=== PATIENT | male | born 1950 | race Caucasian/White ===

== ENCOUNTER → 2016-12-01 | Outpatient (CLI) | payer MEDICARE, BC ==
[~2016-12-01] MED LIST: CELEBREX 200MG200 MG PO; COUMADIN 5MG5 MG/TAB PO; FLECANIDE; FLOMAX 0.40.4 MG/CAP PO; LISINOPRIL10 MG PO; PERCOCET 650 MG1 TAB PO; PRILOSEC10 MG PO
== END ==
LOC: COL.LAB 10:40
DX: Z01.812 Encounter for preprocedural laboratory examination (principal); M25.852 Other specified joint disorders, left hip

== ENCOUNTER → 2016-12-09 | Outpatient (REF) ==
[2016-12-09 04:54] LABS: INR 1.2 (0.8-3.0); PROTHROMBIN TIME 13.8 SECONDS (9.7-12.8)
== END ==
LOC: ZMSC 04:40
PROVIDERS: Orthopaedic Surgery
DX: Z01.89 Encounter for other specified special examinations (principal)

== ENCOUNTER 2020-12-28 07:11 | Day surgery (SDC) | payer MEDICARE, BC ==
[~2020-12-28] VITALS: Ht 180.3 cm; Wt 100.0 kg
[~2020-12-28 07:11] MED LIST changes: -LISINOPRIL10 MG PO; +PRINIVIL10 MG PO
[2020-12-28 07:47] LABS: BASO % 0.1 % (0.0-2.0); EOS # 0.1 (0.0-0.7); EOS % 0.5 % (0-4.0); GRAN # 7.2 (1.4-6.5); GRAN % 75.5 % (42.2-75.2); HEMATOCRIT 43.8 % (42.0-52.0); HEMOGLOBIN 15.3 g/dl (13.5-18.0); LYMPH # 1.4 (1.2-3.4); LYMPH % 14.9 % (20.0-51.0); MEAN CELL VOLUME 90 fl (80.0-100.0); MEAN CORPUSCULAR HEMOGLOBIN 32 pg (27.0-31.0); MEAN CORPUSCULAR HGB CONC 35 g/dl (33.0-37.0); MEAN PLATELET VOLUME 9.7 fl (7.4-10.4); MONO # 0.8 (0.1-0.6); MONO % 8.6 % (1.7-9.3); PLATELET COUNT 212 K/mm3 (130-400); RED BLOOD COUNT 4.85 M/mm3 (4.20-5.60); REDCELL DISTRIBUTION WIDTH-CV 11.9 % (11.5-14.5)
[2020-12-28 07:49] LABS: COLLECTION METHOD CLEAN CATCH
[2020-12-28 07:57] LABS: INR 1.1 (0.8-3.0); PROTHROMBIN TIME 12.5 SECONDS (9.7-12.8)
[2020-12-28 08:00] LABS: ALANINE AMINOTRANSFERASE 21 U/L (4-49); ALBUMIN 4.3 gm/dL (3.5-5.0); ALKALINE PHOSPHATASE 49 U/L (50-136); ANION GAP 8 mmol/L (7-16); AST,SGOT 22 U/L (15-37); BILIRUBIN,TOTAL 0.8 mg/dL (0.0-1.0); BLOOD UREA NITROGEN 34 mg/dL (9-20); CALCIUM 9.8 mg/dL (8.4-10.2); CARBON DIOXIDE 27 mmol/L (22-30); CHLORIDE 104 mmol/L (98-107); CREATININE, serum 1.25 (0.66-1.25); GLUCOSE 111 mg/dL (74-106); POTASSIUM 4.2 mmol/L (3.4-5.0); SODIUM 138 mmol/L (137-145); TOTAL PROTEIN 7.6 gm/dL (6.4-8.2)
[2020-12-28 08:03] LABS: C-REACTIVE PROTEIN < 0.5 mg/dL (0.0-0.9)
[2020-12-28] MEDS ORDERED: TAMBOCOR50 MG PO (08:06)
[2020-12-28] MEDS ORDERED: SINGULAIR 110 MG/TAB PO (08:07)
[2020-12-28] MEDS ORDERED: PRAVACHOL10 MG PO (08:08)
[2020-12-28 08:10] LABS: MUCOUS Present /lpf; PH 5 (5-8); SQUAMOUS EPITHELIAL 0-2 /hpf; URINE APPEARANCE Hazy; URINE BACTERIA None Seen /hpf; URINE BILIRUBIN Negative (NEGATIVE); URINE BLOOD 1+ (NEGATIVE); URINE COLOR Yellow; URINE GLUCOSE Negative (NEGATIVE); URINE KETONE Negative (NEGATIVE); URINE LEUKOCYTE ESTERASE Negative (NEGATIVE); URINE NITRATE Negative (NEGATIVE); URINE PROTEIN(semi-quant) Negative (NEGATIVE); URINE RBC 0-2 /hpf
[2020-12-28] MEDS ORDERED: IBU600 MG PO (11:17)
--- NOTE | 2020-12-28 11:30 | NUR ---
Pt admitted to medical unit rm [id number] from ED via WC, A&O x 4, denies pain at this time. Breath sounds CTAB. Heart sounds with irregular rhythm. IVF's infusing per orders to left AC site without s/s of complications. POC for procedure later today reviewed with pt, verbalizes understanding. No further needs reported. Call light in reach.
[2020-12-28 11:31] VITALS: BP 112/81; PULSE 71; TEMP 97.2
--- NOTE | 2020-12-28 14:38 | NUR ---
Pt to endo for procedure via cart.
--- NOTE | 2020-12-28 14:40 | NUR ---
Pt's notified by this nurse of pt going for procedure.
[2020-12-28 16:30] VITALS: BP 104/72; PULSE 78
--- NOTE | 2020-12-28 16:30 | NUR ---
Pt back to room following procedure via cart, A&O x 4, denies pain. Pt assisted by standby assist to bathroom and back, denies dizziness or pain. IVF's infusing by gravity without s/s of complications. BP still a little low. Pt's at bedside. Call light in reach.
[2020-12-28 16:45] VITALS: BP 117/68; PULSE 75
[2020-12-28 17:00] VITALS: BP 115/86; PULSE 70
[2020-12-28 17:15] VITALS: BP 128/81; PULSE 55
--- NOTE | 2020-12-28 17:53 | NUR ---
VSS. Pt has drank a full glass of water without difficulty, states, "I'm ready to go home." Pt informed of the need to keep food down as well, pudding provided.
--- NOTE | 2020-12-28 18:00 | NUR ---
Pt has eaten a chocolate pudding cup without difficulty, denies nausea.
--- NOTE | 2020-12-28 18:15 | NUR ---
Discharge instructions reviewed with pt regarding follow-up appointments and medication changes. Pt verbalizes understanding, discharged home, escorted out of facility accompanied by REIMBURSEMENT COORDINATOR and pt's .
== END 2020-12-28 18:20 | disposition home or self-care (01) ==
LOC: COL.ER 07:11 → SDCO 09:19 → MEDICAL 09:19 → SDCO 18:20
PROVIDERS: Family Medicine
DX: K22.2 Esophageal obstruction (principal); K44.9 Diaphragmatic hernia without obstruction or gangrene; K21.00 Gastro-esophageal reflux disease with esophagitis, without bleeding; T18.128A Food in esophagus causing other injury, initial encounter; I10 Essential (primary) hypertension; K31.7 Polyp of stomach and duodenum; Z20.828 Contact with and (suspected) exposure to other viral communicable diseases; I48.91 Unspecified atrial fibrillation; N40.0 Benign prostatic hyperplasia without lower urinary tract symptoms; E78.5 Hyperlipidemia, unspecified; G89.29 Other chronic pain; M54.9 Dorsalgia, unspecified; Z79.01 Long term (current) use of anticoagulants; Z79.899 Other long term (current) drug therapy
CPT/HCPCS: G0378; J1610; J2704; J7030; J7120

== ENCOUNTER 2021-01-04 10:29 | Day surgery (SDC) | payer MEDICARE, BC ==
[~2021-01-04] VITALS: Ht 180.3 cm; Wt 100.0 kg
[~2021-01-04 10:29] MED LIST changes: +IBU600 MG PO; +PRAVACHOL10 MG PO; +SINGULAIR 110 MG/TAB PO; +TAMBOCOR50 MG PO
[2021-01-04 11:07] VITALS: BP 134/90; PULSE 64; TEMP 98.3
[2021-01-04 11:30] LABS: INR 1.1 (0.8-3.0); PROTHROMBIN TIME 12.4 SECONDS (9.7-12.8)
[2021-01-04 13:40] VITALS: BP 129/79; PULSE 66
--- NOTE | 2021-01-04 13:40 | NUR ---
Pt to GI bay 7 via cart from ENDO. Pt awake and alert. Pt denies pain or nausea. Coffee and pudding given per pt request. Will continue to monitor. Call light within reach.
[2021-01-04 13:55] VITALS: BP 115/78; PULSE 66
--- NOTE | 2021-01-04 13:55 | NUR ---
Pt continues to rest. Denies needs. Call light within reach.
[2021-01-04 14:10] VITALS: BP 119/84; PULSE 67
--- NOTE | 2021-01-04 14:10 | NUR ---
in to speak with pt at this time.
--- NOTE | 2021-01-04 14:20 | NUR ---
IV site discontinued with all parts intact. Discharge instructions reviewed. Pt voices understanding. Pt up to dress. Call light within reach.
--- NOTE | 2021-01-04 14:30 | NUR ---
Pt escorted to private car via wheel chair. Pt accompanied home by his .
== END 2021-01-04 14:30 | disposition home or self-care (01) ==
LOC: SDCO 10:29
PROVIDERS: Internal Medicine Gastroenterology
DX: K22.2 Esophageal obstruction (principal); K31.7 Polyp of stomach and duodenum; K22.4 Dyskinesia of esophagus; K21.9 Gastro-esophageal reflux disease without esophagitis; K44.9 Diaphragmatic hernia without obstruction or gangrene; I10 Essential (primary) hypertension; I48.91 Unspecified atrial fibrillation; E78.5 Hyperlipidemia, unspecified; J45.909 Unspecified asthma, uncomplicated; G47.33 Obstructive sleep apnea (adult) (pediatric); M19.90 Unspecified osteoarthritis, unspecified site; G89.29 Other chronic pain; M54.9 Dorsalgia, unspecified; F32.9 Major depressive disorder, single episode, unspecified; Z79.01 Long term (current) use of anticoagulants; Z99.89 Dependence on other enabling machines and devices; Z79.899 Other long term (current) drug therapy; Z85.828 Personal history of other malignant neoplasm of skin
CPT/HCPCS: C1726; J2704; J3010; J7120

== ENCOUNTER 2021-08-03 05:32 | Emergency (ER) | payer MEDICARE, BC ==
[~2021-08-03] VITALS: Ht 180.3 cm; Wt 102.3 kg
[2021-08-03] MEDS ORDERED: PROAIR HFA0.09 MG/AC IH (07:14)
[2021-08-03] MEDS ORDERED: ASPERCREME1 EACH TP (07:14)
[2021-08-03] MEDS ORDERED: TUSS PO (07:58)
[2021-08-03 08:10] VITALS: BP 107/79; PULSE 130
== END 2021-08-03 08:10 | disposition home or self-care (01) ==
LOC: COL.ER 05:32
DX: S22.31XA Fracture of one rib, right side, initial encounter for closed fracture (principal); J45.909 Unspecified asthma, uncomplicated; I10 Essential (primary) hypertension; I48.91 Unspecified atrial fibrillation; E78.5 Hyperlipidemia, unspecified; N40.0 Benign prostatic hyperplasia without lower urinary tract symptoms; Z20.822 Contact with and (suspected) exposure to COVID-19; Z79.01 Long term (current) use of anticoagulants; Z79.899 Other long term (current) drug therapy; X58.XXXA Exposure to other specified factors, initial encounter